=== PATIENT | male | born 1985 | race Hispanic/Latino ===

== ENCOUNTER 2019-02-04 12:44 | Emergency (ER) | payer BC, SELFPAY ==
--- NOTE | 2019-02-04 13:35 | RAD ---
PA AND LATERAL CHEST: Date: 02/04/19 HISTORY: Cough. COMPARISON: 04/25/14 exam. FINDINGS: Heart size and mediastinum are within normal limits. Lungs are clear of infiltrates. No significant b jennifer findings. IMPRESSION: No active intrathoracic disease. POS: [facility]
== END 2019-02-04 14:43 | disposition home or self-care (01) ==
LOC: MADERS 12:44
DX: J06.9 Acute upper respiratory infection, unspecified (principal); F17.210 Nicotine dependence, cigarettes, uncomplicated
CPT/HCPCS: 71046; 93005

== ENCOUNTER 2019-07-03 14:32 | Emergency (ER) | payer OTHER, SELFPAY ==
--- NOTE | 2019-07-03 15:25 | RAD ---
Exam: XR Foot Rt 3 View STANDARD HISTORY: Right foot injury. COMPARISON: None FINDINGS: The toes are held in flexion which does mildly limit evaluation. No acute fracture, dislocation, or other acute osseous abnormality is identified. Subcutaneous soft tissue swelling is seen at the dorsal aspect of the foot. IMPRESSION: Subcutaneous soft tissue swelling dorsal aspect of the right foot. No fracture is appreciated.
== END 2019-07-03 16:00 | disposition home or self-care (01) ==
LOC: MADERS 14:32
DX: S90.31XA Contusion of right foot, initial encounter (principal); F17.210 Nicotine dependence, cigarettes, uncomplicated; W22.8XXA Striking against or struck by other objects, initial encounter